=== PATIENT | male | born 1995 | race American Indian/Alaskan Native ===

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

== ENCOUNTER 2017-01-24 20:25 | Emergency (ER) | payer MEDICAID ==
[2017-01-24 20:25] VITALS: BMI 31.7
[2017-01-24 20:33] VITALS: RESP 18; TEMP 98.4
[2017-01-24] MEDS ORDERED: Sodium Chloride 0.9% 1,000 ML IV SCH (21:15)
--- NOTE | 2017-01-24 21:20 | ED PDOC ---
Arrival/HPI - General Chief Complaint: Syncope Time Seen by Provider: 01/24/17 21:03 Historian: Patient - History of Present Illness Narrative History of Present Illness (Text): 01/24/17 21:12 Dinesh Bautista is a 21 year old male smoker, with no significant past medical history, who presents to the Emergency department complaining of a near- syncopal episode. Patient states tonight when he stood up at home after eating he began feeling increasingly dizzy and weak with some abdominal discomfort. Patient notes he has not eaten all day and only ate some Hungarian food 1 hour prior to arrival. Patient denies any history of substance abuse, chest pain, shortness of breath, nausea, vomiting, diarrhea, urinary symptoms, back pain, neck pain, headache, or any other complaints. Time/Duration: Other (tonight) Symptom Onset: Sudden Symptom Course: Unchanged Activities at Onset: Light Context: Home Past Medical History - Provider Review Nursing Documentation Reviewed: Yes - Past History Past History: No Previous - Infectious Disease Hx of Infectious Diseases: None - Tetanus Immunization Tetanus Immunization: Up to Date - Psychiatric Hx Depression: No Hx Emotional Abuse: No Hx Physical Abuse: No Hx Substance Use: No - Past Surgical History Past Surgical History: No Previous - Anesthesia Hx Anesthesia: No - Suicidal Assessment Feels Threatened In Home Enviroment: No Family/Social History - Physician Review Nursing Documentation Reviewed: Yes Family/Social History: Unknown Family HX Smoking Status: Never Smoked Hx Alcohol Use: No Hx Substance Use: No Hx Substance Use Treatment: No Allergies/Home Meds Allergies/Adverse Reactions: Allergies No Known Allergies Allergy (Verified 01/09/15 18:06) Home Medications: Home Meds Medication Instructions Recorded Confirmed No Known Home Med 01/24/17 01/24/17 Review of Systems - Physician Review All systems were reviewed & negative as marked: Yes - Review of Systems Constitutional: Other (+weakness). absent: Fevers Eyes: Normal. absent: Vision Changes ENT: Normal Respiratory: Normal. absent: SOB, Cough Cardiovascular: Other (+near-syncope) Gastrointestinal: Normal. absent: Abdominal Pain, Diarrhea, Nausea, Vomiting Genitourinary Male: Normal. absent: Dysuria, Frequency, Hematuria, Urinary Output Changes Musculoskeletal: Normal. absent: Back Pain, Neck Pain Skin: Normal. absent: Rash Neurological: Normal. absent: Headache, Dizziness Endocrine: Normal Hemo/Lymphatic: Normal Psychiatric: Normal Physical Exam Vital Signs Reviewed: Yes Vital Signs Temp Pulse Resp BP Pulse Ox 01/24/17 22:26 82 18 117/75 98 01/24/17 20:32 98.4 F 69 18 93/61 L 99 Temperature: Afebrile Blood Pressure: Hypotensive Pulse: Regular Respiratory Rate: Normal Appearance: Positive for: Well-Appearing, Non-Toxic, Comfortable Pain Distress: None Mental Status: Positive for: Alert and Oriented X 3 Finger Stick Blood Glucose: 107 - Systems Exam Head: Present: Atraumatic, Normocephalic Pupils: Present: PERRL Extroacular Muscles: Present: EOMI Conjunctiva: Present: Normal Mouth: Present: Moist Mucous Membranes Neck: Present: Normal Range of Motion Respiratory/Chest: Present: Clear to Auscultation, Good Air Exchange. No: Respiratory Distress, Accessory Muscle Use Cardiovascular: Present: Regular Rate and Rhythm, Normal S1, S2. No: Murmurs Abdomen: Present: Normal Bowel Sounds. No: Tenderness, Distention, Peritoneal Signs Back: Present: Normal Inspection Upper Extremity: Present: Normal Inspection. No: Cyanosis, Edema Lower Extremity: Present: Normal Inspection. No: Edema Neurological: Present: GCS=15, CN II-XII Intact, Speech Normal Skin: Present: Warm, Dry, Normal Color. No: Rashes Psychiatric: Present: Alert, Oriented x 3, Normal Insight, Normal Concentration Medical Decision Making ED Course and Treatment: 01/24/17 21:12 Impression: 21 year old male complaining of dizziness, weakness, and abdominal discomfort tonight. Differential Diagnosis included but are not limited to: vasovagal near-syncope vs. electrolyte imbalance Plan: -- EKG -- Labs, cardiac enzymes -- IV fluids -- Reassess and disposition Prior Visits: Notes and results from previous visits were reviewed. On 08/21/2016, pt was seen in the Emergency department for chest pain. Pt was d/ c home. Progress Notes: Reviewed EKG, NSR at 64 bpm. Sinus arrhythmia. No acute ischemia. 01/25/17 22:45 Reviewed labs, within normal limits. On reevaluation the patient feels better and is in no acute distress. I have discussed the results and plan with the patient, who expresses understanding. Patient given the opportunity to ask question, all questions were answered and there is agreement with the plan to discharge the patient home. Patient is stable for discharge. Patient was instructed to follow up with physician/clinic in 1-2 days or return if symptoms persist/worsen or new concerning symptoms arise. - Lab Interpretations Lab Results: 01/24/17 21:20 01/24/17 21:20 Lab Results 01/24/17 22:27: Urine Color Yellow, Urine Appearance Clear, Urine pH 6.0, Ur Specific [place] <= 1.005, Urine Protein Negative, Urine Glucose (UA) Negative, Urine Ketones Negative, Urine Blood Negative, Urine Nitrate Negative, Urine Bilirubin Negative, Urine Urobilinogen 1.0 H, Ur Leukocyte Esterase Negative 01/24/17 21:20: Sodium 137, Potassium 3.6, Chloride 102, Carbon Dioxide 28, Anion Gap 11, BUN 14, Creatinine 1.1, Est GFR ( Amer) > 60, Est GFR (Non- Af Amer) > 60, Random Glucose 109, Calcium 8.8, Magnesium 1.5 L, Total Bilirubin 1.0, AST 38, ALT 37, Alkaline Phosphatase 54, Lactate Dehydrogenase 379, Total Creatine Kinase 417 H, CK-MB (CK-2) 1.7, CK-MB (CK-2) % 0.4 L, Troponin I < 0.01, Total Protein 6.6, Albumin 3.9, Globulin 2.7, Albumin/ Globulin Ratio 1.4 01/24/17 21:20: WBC 6.2 D, RBC 3.80, Hgb 11.6 L, Hct 34.8 L, MCV 91.6, MCH 30.5 , MCHC 33.3, RDW 11.6, Plt Count 265, MPV 10.2, Gran % 54.5, Lymph % (Auto) 38.6 H, [place] % (Auto) 4.7, Eos % (Auto) 1.6, Baso % (Auto) 0.6, Gran # 3.35, Lymph # 2.4, [place] # 0.3, Eos # 0.1, Baso # 0.04 I have reviewed the lab results: Yes - EKG Interpretation Interpreted by ED Physician: Yes Type: 12 lead EKG - Medication Orders Current Medication Orders: Discontinued Medications Sodium Chloride (Sodium Chloride 0.9%) 1,000 mls @ 1,000 mls/hr IV .Q1H ROSA Last Admin: 01/24/17 21:25 Dose: 1,000 mls/hr - Scribe Statement The provider has reviewed the documentation as recorded by the Scribe Jaclyn Pham Provider Scribe Attestation: All medical record entries made by the Scribe were at my direction and personally dictated by me. I have reviewed the chart and agree that the record accurately reflects my personal performance of the history, physical exam, medical decision making, and the department course for this patient. I have also personally directed, reviewed, and agree with the discharge instructions and disposition. Disposition/Present on Arrival - Present on Arrival History of DVT/PE: No History of Uncontrolled Diabetes: No Urinary Catheter: No History of Decub. Ulcer: No History Surgical Site Infection Following: None - Disposition Diagnosis: Vasovagal near syncope Disposition: HOME/ ROUTINE Discharge Instructions (ExitCare): Syncope (ED) Referrals: Tuan Ibarra MD [Primary Care Provider] - Follow up with primary Forms: Nala (Albanian)
[2017-01-24 21:33] LABS: BASO # 0.04 K/mm3 (0.0-2.0); BASO % 0.6 % (0.0-3.0); EOS # 0.1 (0.0-0.7); EOS % 1.6 % (1.5-5.0); GRAN # 3.35 (1.4-6.5); GRAN % 54.5 % (50.0-68.0); HEMATOCRIT 34.8 % (42.0-52.0); LYMPH # 2.4 (1.2-3.4); LYMPH % 38.6 % (22.0-35.0); MEAN CELL VOLUME 91.6 fl (80.0-105.0); MEAN CORPUSCULAR HEMOGLOBIN 30.5 pg (25.0-35.0); MEAN CORPUSCULAR HGB CONC 33.3 g/dl (31.0-37.0); MEAN PLATELET VOLUME 10.2 fl (7.0-11.0); MONO # 0.3 (0.1-0.6); MONO % 4.7 % (1.0-6.0); RED CELL DISTRIBUTION WIDTH 11.6 % (11.5-14.5); WHITE BLOOD COUNT 6.2 10^3/ul (4.5-11.0)
[2017-01-24 21:40] LABS: ALB/GLOB RATIO 1.4 (1.1-1.8); ALKALINE PHOSPHATASE 54 U/L (38-126); ALT/SGPT 37 U/L (7-56); AST/SGOT 38 U/L (17-59); BLOOD UREA NITROGEN 14 mg/dL (7-21); CALCIUM 8.8 mg/dL (8.4-10.5); CARBON DIOXIDE 28 mmol/L (21-33); CHLORIDE 102 mmol/L (98-107); GFR AFRICAN-AMERICAN > 60; GLUCOSE,RANDOM 109 mg/dL (70-110); MAGNESIUM 1.5 mg/dL (1.7-2.2); POTASSIUM 3.6 mmol/L (3.6-5.0); SODIUM 137 mmol/L (132-148); TOTAL PROTEIN 6.6 g/dL (5.8-8.3)
[2017-01-24 21:55] LABS: TROPONIN I < 0.01 ng/mL
[2017-01-24 22:27] VITALS: BP 117/75; PULSE 82; O2SAT 98
[2017-01-24 22:31] LABS: URINE BILIRUBIN NEGATIVE (NEGATIVE); URINE BLOOD NEGATIVE (NEGATIVE); URINE GLUCOSE (UA) NEGATIVE (NEGATIVE); URINE KETONE NEGATIVE (NEGATIVE); URINE LEUKOCYTE ESTERASE NEGATIVE Leu/uL (NEGATIVE); URINE PROTEIN NEGATIVE mg/dL (<30 mg/dL)
[2017-01-24 22:32] LABS: URINE APPEARANCE CLEAR (CLEAR); URINE COLOR YELLOW (YELLOW)
--- NOTE | 2017-01-25 11:10 | CARD ---
APPROVED REPORT EKG Measurement Heart [id number] [place] [id number] <Conclusion> Normal sinus rhythm with sinus arrhythmia Normal ECG
== END 2017-01-24 22:46 | disposition home or self-care (01) ==
LOC: ED 20:25
DX: R55 Syncope and collapse (principal)
CPT/HCPCS: 80053; 81003; 82550; 82553; 82948; 83615; 83735; 84484; 85025; 93005; 96360; 99285; J7040

== ENCOUNTER 2017-08-03 16:08 | Emergency (ER) | payer MEDICAID, OTHER ==
[2017-08-03 16:08] VITALS: BMI 31.7
[2017-08-03 16:33] VITALS: RESP 18; TEMP 98.4; O2SAT 99
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
[2017-08-03 17:36] VITALS: BP 148/79; PULSE 69
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
--- NOTE | 2017-08-04 23:36 | CARD ---
APPROVED REPORT EKG Measurement Heart [id number] [place] 166P63 [id number] <Conclusion> Normal sinus rhythm with sinus arrhythmia Normal ECG
== END 2017-08-03 17:49 | disposition home or self-care (01) ==
LOC: ED 16:08
DX: S60.221A Contusion of right hand, initial encounter (principal); W22.8XXA Striking against or struck by other objects, initial encounter; Y92.89 Other specified places as the place of occurrence of the external cause

== ENCOUNTER 2017-09-12 14:17 | Emergency (ER) | payer OTHER ==
[2017-09-12] MEDS ORDERED: cefTRIAXone (Rocephin) 250 mg Inj IM STA (15:12)
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
[2017-09-12 15:28] LABS: PH,URINE 7.5 (4.7-8.0); URINE BILIRUBIN NEGATIVE (NEGATIVE); URINE BLOOD NEGATIVE (NEGATIVE); URINE GLUCOSE (UA) NEGATIVE (NEGATIVE); URINE LEUKOCYTE ESTERASE NEGATIVE Leu/uL (NEGATIVE); URINE PROTEIN NEGATIVE mg/dL (<30 mg/dL)
[2017-09-12 15:35] LABS: URINE APPEARANCE CLEAR (CLEAR); URINE COLOR YELLOW (YELLOW)
[2017-09-12 15:55] VITALS: TEMP 98.3; O2SAT 100
[2017-09-12 15:58] VITALS: BMI 29.8
[2017-09-12 16:59] VITALS: BP 122/78; PULSE 66; RESP 17
== END 2017-09-12 16:59 | disposition home or self-care (01) ==
LOC: ED 14:17
DX: Z20.2 Contact with and (suspected) exposure to infections with a predominantly sexual mode of transmission (principal)
CPT/HCPCS: 81003; 87086; 87491; 87591; 96372; 99284; J0696

== ENCOUNTER 2017-12-13 20:19 | Emergency (ER) | payer OTHER ==
[2017-12-13 20:22] VITALS: BMI 29.8
[2017-12-13 20:35] VITALS: TEMP 98.2; O2SAT 98
[2017-12-13] MEDS ORDERED: Oxycodone/Acetaminophen 5/325 mg Tab PO STA (20:38)
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
[2017-12-13 23:45] VITALS: BP 135/82; PULSE 82; RESP 18
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
== END 2017-12-14 00:15 | disposition home or self-care (01) ==
LOC: ED 20:19
DX: S16.1XXA Strain of muscle, fascia and tendon at neck level, initial encounter (principal); F07.81 Postconcussional syndrome; V89.2XXA Person injured in unspecified motor-vehicle accident, traffic, initial encounter
CPT/HCPCS: 70450; 70486; 72125; 96372; 99285; J1885